=== PATIENT | female | born 1990 | race Caucasian/White ===

== ENCOUNTER 2020-07-30 16:09 | Day surgery (SDC) | payer OTHER ==
[~2020-07-30] VITALS: Ht 157.5 cm; Wt 52.7 kg
[~2020-07-30 16:09] MED LIST: CEFAZOLIN 1,000 MG ONE
[2020-07-30] MEDS ORDERED: LACTATED RINGERS 1,000 ML IV SCH (16:30)
[2020-07-30] MEDS ORDERED: PLEASE ENTER HEIGHT AND WEIGHT MC SCH (16:36)
[2020-07-30] MEDS ORDERED: CHLORHEXIDINE 15 ML UDC MM ONE (17:00)
[2020-07-30 17:07] LABS: ANION GAP 10 mmol/L (5-15); CALCIUM 9.7 mg/dL (8.5-10.1); CHLORIDE 109 mmol/L (98-107)
[2020-07-30 17:17] VITALS: BP 108/73
[2020-07-30] MEDS ORDERED: LEVOTHYROXINE PO (17:26)
[2020-07-30] MEDS ORDERED: METHYLERGONOVINE 0.2 MG/ML IM ONE (18:25)
[2020-07-30] MEDS ORDERED: MISOPROSTOL 200 MCG TABLET ONE (18:25)
[2020-07-30] MEDS ORDERED: SILVER NITRATE STICK TP ONE (18:25)
[2020-07-30] MEDS ORDERED: MIDAZOLAM 1 MG/ML, 2ML ONE (18:35)
[2020-07-30] MEDS ORDERED: FENTANYL PF 250 MCG/5ML ONE (18:36)
[2020-07-30] MEDS ORDERED: PROPOFOL 10 MG/ML, 20ML ONE (18:43)
[2020-07-30] MEDS ORDERED: DEXAMETHASONE 4 MG/ML, 1ML ONE (18:43)
[2020-07-30] MEDS ORDERED: ONDANSETRON 2MG/ML, 2ML ONE (18:43)
[2020-07-30] MEDS ORDERED: KETOROLAC 30 MG/1 ML ONE (18:43)
[2020-07-30] MEDS ORDERED: ONDANSETRON 2MG/ML, 2ML IVPush PRN (19:00)
[2020-07-30] MEDS ORDERED: hydrALAzine 20 MG/ML, 1ML IV PRN (19:00)
[2020-07-30] MEDS ORDERED: OXYcodone 5 MG/5 ML ORAL.SOL UDC PO PRN (19:00)
[2020-07-30] MEDS ORDERED: ACETAMINOPHEN 325 MG TABLET PO PRN (19:00)
[2020-07-30] MEDS ORDERED: LABETALOL 5MG/ML, 20ML IV PRN (19:00)
[2020-07-30] MEDS ORDERED: FENTANYL PF 100 MCG/2ML IV PRN (19:00)
[2020-07-30] MEDS ORDERED: HYDROmorphone 1 MG/ML, 1ML INJ IVPush PRN (19:00)
[2020-07-30] MEDS ORDERED: MEPERIDINE/PF 25MG/0.5ML IVPush PRN (19:00)
[2020-07-30] MEDS ORDERED: PROMETHAZINE 25 MG/ML, 1ML IVPush PRN (19:00)
[2020-07-30] MEDS ORDERED: PROPOFOL 50 ML ONE (19:05)
[2020-07-30] MEDS ORDERED: OXYC-302 PO (21:40)
[2020-07-30] MEDS ORDERED: IBUP-1222 PO (21:42)
[2020-07-30] MEDS ORDERED: OXYcodone/APAP 5/325MG TABLET PO PRN (22:30)
[2020-07-30] MEDS ORDERED: KETOROLAC 30 MG/1 ML IV PRN (22:30)
== END 2020-07-30 23:25 | disposition home or self-care (01) ==
LOC: OR 16:09 → 4NW 21:15 → OR 23:25
PROVIDERS: ATTEND Obstetrics & Gynecology
DX: O02.1 Missed abortion (principal); Z20.828 Contact with and (suspected) exposure to other viral communicable diseases; E03.9 Hypothyroidism, unspecified; Z79.890 Hormone replacement therapy; Z79.899 Other long term (current) drug therapy; Z98.890 Other specified postprocedural states; Z80.6 Family history of leukemia; Z82.49 Family history of ischemic heart disease and other diseases of the circulatory system
CPT/HCPCS: 36415; 59820; 80048; 86850; 86870; 86900; 87635; 88305; J0690; J1100; J1885; J2250; J2405; J2704; J2790; J3010; J7120; G0378; J2210